=== PATIENT | male | born 1960 | race Caucasian/White ===

== ENCOUNTER 2020-04-21 08:46 | Emergency (ER) | payer OTHER, SELFPAY ==
[2020-04-21 09:08] VITALS: BP 150/82; PULSE 88; RESP 16; TEMP 36.8; O2SAT 98; BMI 30.4
--- NOTE | 2020-04-21 09:20 | ECG_ITS ---
Test Reason : BLURRY VISION Blood Pressure : / mmHG Vent. Rate : 071 BPM Atrial Rate : 071 BPM P-R Int : 154 ms QRS Dur : 084 ms QT Int : 378 ms P-R-T Axes : 049 069 013 degrees QTc Int : 410 ms Normal sinus rhythm Normal ECG When compared with ECG of 16-JUN-2018 07:07, No significant change was found Referred By: Francisco Bernal Electronically Signed By:Quirino Abbott
--- NOTE | 2020-04-21 09:20 | CT_ITS ---
EXAMINATION: CT HEAD WITHOUT CONTRAST CLINICAL INFORMATION: Bilateral visual change, rule out stroke/bleed. COMPARISON: None TECHNIQUE: Contiguous axial imaging was performed from the skull base to vertex without intravenous administration of contrast. Coronal and sagittal reformatted images were obtained. This CT examination was performed using dose optimization techniques as appropriate, variously including the following: *Automated exposure control *Adjustment of mA and/or kV according to patient size (this includes techniques or standardized protocols for targeted exams where dose is matched to indication/reason for exam; i.e. extremities or head) *Use of iterative reconstruction technique DLP: 792 mGy-cm FINDINGS: There is no evidence of acute intracranial hemorrhage or territorial infarction. No abnormal mass effect or midline shift is seen. Hudson to white matter differentiation is well preserved. No extra-axial fluid collections are identified. The ventricles are normal in size. There is no abnormal attenuation within the brain parenchyma. The osseous structures and soft tissues are normal. The mastoid air cells are incompletely visualized. There is opacification of several inferior right mastoid air cells. The left mastoid air cells are clear. Moderate opacification is seen in the right sphenoid sinus. There is opacification of several left ethmoid air cells. CT/CT head/brain wo con IMPRESSION: 1. No acute intracranial pathology. 2. Inflammatory changes in the right sphenoid and left ethmoid paranasal sinuses as well as the inferior right mastoid air cells.
[2020-04-21 09:52] LABS: MANUAL DIFF FLAG NO
--- NOTE | 2020-04-21 10:00 | ED_ITS ---
HPI - Eye Problem General Chief complaint: Eye Problems Stated complaint: eye problems Time Seen by Provider: 04/21/20 08:51 Source: patient Mode of arrival: ambulatory History of Present Illness HPI Narrative: 60-year-old male who presents the emergency department for evaluation of visual changes. The patient states that he was in his usual state of health until 3:00 a.m. when he was watching TV and noted that he had difficulty focusing on the television. He states that he had blurring of his peripheral vision on both eyes. He states he closed 1 eye he still would have blurring of the peripheral vision on the open eye. He also described with an ?wiggling ? lines in his peripheral vision. He did not notice any flashing lights, he states that he had no difficulty with the central vision, he denied tunnel vision. He states that the symptoms lasted for approximately 15 minutes. He continued to watch television and his symptoms recurred again at around 5:00 a.m. the symptoms came on suddenly and were isolated to his peripheral vision similar to the 1st episode. He denied headache, nausea, vomiting, weakness, chest pain, shortness of breath, diaphoresis, neck pain or jaw pain. He states that he currently has a very mild headache. He states that he rarely gets headaches and has no history of migraine headaches. He denies being under any increased stress than usual. He states that he urinates frequency but has not noticed increased thirst. He denies numbness or weakness. At the time of presentation in the emergency department, he states that his symptoms are completely resolved and his vision is back to normal and he has a very mild diffuse headache. Related Data Allergies Allergy/AdvReac Type Severity Reaction Status Date / Time Penicillins [PENICILLINS] Allergy Unknown UNKNOWN Verified 04/21/20 09:07 Review of Systems Review of Systems: Yes all other systems are reviewed and are negative Constitutional: Constitutional: Reports as per HPI Eyes: Eyes: Reports as per HPI ENT: Reports as per HPI Cardiovascular: Cardiovascular: Reports as per HPI Respiratory: Respiratory: Reports as per HPI Gastrointestinal: Gastrointestinal: Reports as per HPI Genitourinary: Genitourinary: Reports as per HPI Musculoskeletal: Musculoskeletal: Reports as per HPI Integumentary/Breasts: Skin/Breast: Reports as per HPI Neurologic: Reports as per HPI and Reports Abnormal speech present Psychiatric: Psychiatric: Reports as per HPI Allergic/Immunologic: Allergic/Immunologic: Reports as per HPI [facility] Past Medical History Attestation statement: The following information was validated with the patient. [facility] Narrative: Borderline hypertension, not on any medications, prostate biopsy in the past-benign, he denies tobacco use, he drinks 3 times a week, 2-3 beverages, denies drug use. Medical History High cholesterol Social History Social History Smoking Status: Light tobacco smoker Use of substances other than those prescribed or required for medical reasons: No Advance Directives: No Advance Directives Information Provided: No Physical Exam Vital Signs: Vital Signs: Last Vital Signs Temp 98.3 F 04/21/20 09:08 Pulse 69 04/21/20 10:10 Resp 16 04/21/20 10:10 BP 148/77 H 04/21/20 10:10 Pulse Ox 97 04/21/20 10:10 Body Mass Index 30.4 Const: General: cooperative and healthy appearing Nutritional Appearance: average body habitus Orientation/consciousness: oriented to person and oriented to place Limitations: no limitations HENMT: Head: Yes normal to inspection, Yes normocephalic, Yes atraumatic and No Temporal artery tenderness present Ears: external ears normal General nose exam: Normal external nose present Face and sinus: Yes normal facial exam Mouth: Normal oral and palatal mucosa present Throat: Yes posterior oropharynx normal Eyes: General: appearance normal, both eyes and all related structures Alignment and Position: alignment normal Periorbital: periorbital findings normal Eyelids: Yes eyelids normal Conjunctivae: conjunctivae normal Sclerae: sclerae normal Pupils: Equal, round and reactive pupils present Direct Ophthalmoscopy: normal light reflex Neck: Neck: Yes normal visual inspection and Yes supple Thyroid: Thyroid normal Chest: Chest palpation & inspection: normal inspection of the chest and normal palpation of entire chest wall Resp: Effort & Inspection: normal respiratory effort and able to speak in complete sentences Auscultation: clear to auscultation bilaterally, no crackles, no rales and no rhonchi Cardio: Rate: regular rate Rhythm: regular rhythm Heart sounds: S1 normal heart sound present, S2 normal heart sound present and no murmurs GI: Inspection: Yes normal to inspection Palpation (GI): Soft to palpation, nontender and no guarding Auscultation: normal bowel sounds : General: Yes no CVA tenderness Back/Spine/Pelvis: Back: no CVA tenderness Cervical Spine: normal cervical lordosis Thoracic/Lumbar Spine: thoracic and lumbar spine normal to inspection Skin: General skin exam: no rashes or lesions noted Lesions: no lesions Rashes: no rashes Trauma: no lacerations or abrasions Neuro: General: oriented to person and oriented to place Cranial nerves: Yes CN's II-XII intact bilaterally and Yes Equal, round and reactive pupils present Cognition (Neuro): normal cognition Speech: Abnormal speech present Motor exam (neuro): 5/5 motor strength present throughout Extrem: Right upper extremity: normal to inspection and full ROM Psych: Appearance: grossly normal and well kempt Mental Status: mental status grossly normal Speech and movement: Normal speech and movement present Affect: normal affect Attitude: cooperative Thought process: Normal thought process present Thought content: Normal thought content present Insight: Good insight present (Psych) Judgement: Good judgement present (Psych) NIH Stroke Scale Internal: Initial- Upon Arrival Level of Consciousness: Alert Level of Consciousness Questions: Answers both questions correctly Level of Consciousness Commands: Performs both tasks correctly Best Gaze: Normal Visual: No visual loss Facial Palsy: Normal Motor Arm (Right): No drift Motor Arm (Left): No drift Motor Leg (Right): No drift Motor Leg (Left): No drift Limb Ataxia: Absent Sensory: Normal Best Language: No aphasia Dysarthia: Normal Extinction and Inattention: No abnormality Score: 0 Course Course Course Narrative: 60-year-old male who presents to the emergency department for evaluation of 2 episodes of visual change which he described as bilateral changes in his peripheral vision with moving lines in his peripheral vision which lasted approximately 15-20 minutes for both episodes and had completely resolved by the time he was evaluated in the emergency department. Patient's physical examination was normal. The patient does not have a history of frequent headaches or migraine headaches but I suspect that he may be having an ocular migraine. The patient was ordered to get a headache workup to include sedimentation rate, CBC, BMP, LFTs, EKG and CT brain without contrast. He is currently asymptomatic therefore no treatment was given. 1049: Patient's laboratory evaluation was unremarkable. The patient's sedimentation rate was normal. The CT scan of the patient's brain without contrast revealed no acute finding to explain his symptoms, he does have some inflammation of the sinuses and I did discuss this with him. My impression is that patient's symptoms are most consistent with an ocular migraine. I discussed this with the patient. He was advised to take Excedrin migraine 1 pill with Benadryl 50 mg every 6 hours as needed for headache/visual changes. I told him if he develops any new symptoms or if he develops any symptoms that are concerning to him he should return to the emergency department for re- evaluation. He should follow up with his doctor in 2 days for re-evaluation as well. MDM - Eye Problem Medical Records Attestation: I reviewed the patient's medical records. Lab Data Attestation: I reviewed the patient's lab results. Result diagrams: 04/21/20 09:45 04/21/20 09:45 Labs: Lab Results 04/21/20 04/21/20 04/21/20 Range/Units 09:45 09:45 09:45 WBC 4.7 L (4.8-10.8) X10*3/uL RBC 5.41 (4.60-5.80) X10*6/uL Hgb 16.0 (14.0-18.0) g/dl Hct 47.8 (42-52) % MCV 88.4 (80-98) fL MCH 29.6 (27.0-33.0) pg MCHC 33.5 (31.0-36.0) g/dl RDW 12.6 (11.0-16.0) % Plt Count 246 (160-400) X10*3/uL MPV 8.4 L (9.4-12.4) fL Immature Gran % (Auto) 0.4 (0.0-0.4) % Neut % (Auto) 63.0 (45-73) % Lymph % (Auto) 25.0 (20-40) % Archuleta % (Auto) 8.7 (2-11) % Eos % (Auto) 2.5 (0-4) % Baso % (Auto) 0.4 (0-2) % Lymph # (Auto) 1.2 (1.2-4.9) X10*3/uL Archuleta # (Auto) 0.4 (0.1-1.2) X10*3/uL Eos # (Auto) 0.1 (0.0-0.4) X10*3/uL Baso # (Auto) 0.0 (0.0-0.2) X10*3/uL Abs Immat Gran (auto) 0.02 (0.00-0.03) X10*3/uL Absolute Neuts (auto) 3.0 (2.0-8.3) X10*3/uL Absolute Nucleated RBC 0.000 (0.0-0.012) X10*3/uL Nucleated RBC % (auto) 0.0 (0.0-0.2) /100WBC ESR 2 (0-15) MM/HR Sodium 140 (135-145) mmol/L Potassium 4.8 (3.3-5.1) mmol/l Chloride 101 (96-108) mmol/L Carbon Dioxide 32 H (22-29) mmol/L Anion Gap 12 (12-20) BUN 18 H (9-16) mg/dL Creatinine 1.05 (0.5-1.4) mg/dL Estim Creat Clear Calc 83.8 Estimated GFR > 60 Random Glucose 113 (60-115) mg/dL Calcium 9.3 (8.4-10.2) mg/dL Total Bilirubin 0.5 (0.0-1.0) mg/dL Direct Bilirubin 0.2 (0.0-0.5) mg/dL AST 25 (5-37) U/L ALT 32 (0-40) U/L Alkaline Phosphatase 91 (39-117) U/L Total Protein 7.2 (6.5-8.0) g/dL Albumin 4.6 (3.5-5.0) g/dL ECG Data Attestation: I personally reviewed and interpreted this ECG as follows: ECG interpretation date: 04/21/20 ECG interpretation time: 09:59 Prior ECG tracings: not available for review Interpretation: Normal sinus rhythm with a rate of 71, normal intervals, inverted T-wave in lead 3, small Q-wave in lead 3, no ST segment elevation and no ST segment depression, no old EKG for comparison Discharge Plan Discharge Clinical Impression: Ocular migraine, Change in vision Patient Disposition: Home, Self-Care Instructions: Ocular Migraine (ED) Additional Instructions: Your blood work was normal. The CT scan of your brain without IV contrast revealed no evidence of stroke, bleeding or large tumors in your brain. You did have some mild inflammation of your sinuses, but this is not the cause of your symptoms and does not need treatment at this time. If your symptoms recur, take Excedrin migraine 1 pill and Benadryl 25 mg, 2 pills every 6 hours as needed for symptoms. After you take these medications, lie down for 1 hour in a dark quiet room and your symptoms should resolve. If you develop any new symptoms that are concerning to you or if your symptoms get worse then you should return to the emergency department for evaluation. Follow-up with your doctor in 2 days for re-evaluation.
[2020-04-21 10:03] LABS: Basophils Percent Auto 0.4 % (0-2); Eosinophils Absolute Auto 0.1 X10*3/uL (0.0-0.4); Eosinophils Percent Auto 2.5 % (0-4); Hematocrit 47.8 % (42-52); Imm Gran Abs Auto 0.02 X10*3/uL (0.00-0.03); Imm Gran Pct Auto 0.4 % (0.0-0.4); Lymphocytes Absolute Auto 1.2 X10*3/uL (1.2-4.9); Mean Corpuscular HGB Conc 33.5 g/dl (31.0-36.0); Mean Corpuscular Hemoglobin 29.6 pg (27.0-33.0); Mean Corpuscular Volume 88.4 fL (80-98); Mean Platelet Volume 8.4 fL (9.4-12.4); Monocytes Absolute Auto 0.4 X10*3/uL (0.1-1.2); Monocytes Percent Auto 8.7 % (2-11); Platelet Count 246 X10*3/uL (160-400); Red Blood Count 5.41 X10*6/uL (4.60-5.80); Red Cell Distribution Width 12.6 % (11.0-16.0); White Blood Count 4.7 X10*3/uL (4.8-10.8)
[2020-04-21 10:10] VITALS: BP 148/77; PULSE 69; RESP 16; O2SAT 97
[2020-04-21 10:16] LABS: Alanine Aminotransferase 32 U/L (0-40); Albumin Level 4.6 g/dL (3.5-5.0); Alkaline Phosphatase 91 U/L (39-117); Anion Gap 12 (12-20); Aspartate Amino Transferase 25 U/L (5-37); Bilirubin Direct 0.2 mg/dL (0.0-0.5); Bilirubin Total 0.5 mg/dL (0.0-1.0); Blood Urea Nitrogen 18 mg/dL (9-16); Calcium 9.3 mg/dL (8.4-10.2); Carbon Dioxide 32 mmol/L (22-29); Chloride 101 mmol/L (96-108); Creatinine Clr Calc Pharmacy 83.8; Estimated Glomerular Filt Rate > 60; Glucose Random 113 mg/dL (60-115); Potassium 4.8 mmol/l (3.3-5.1); Sodium 140 mmol/L (135-145); Total Protein 7.2 g/dL (6.5-8.0)
[2020-04-21 10:55] LABS: Erythrocyte Sedimentation Rate 2 MM/HR (0-15)
== END 2020-04-21 11:01 | disposition home or self-care (01) ==
PROVIDERS: Emergency Provider Emergency Medicine Emergency Medical Services; PCP Internal Medicine
DX: G43.009 Migraine without aura, not intractable, without status migrainosus (principal); H53.8 Other visual disturbances; R29.700 NIHSS score 0; F17.200 Nicotine dependence, unspecified, uncomplicated; Z71.6 Tobacco abuse counseling
CPT/HCPCS: 36415; 70450; 80048; 80076; 85025; 85652; 93005; 99284

== ENCOUNTER 2022-08-30 05:57 | Emergency (ER) | payer BC, SELFPAY ==
--- NOTE | ~2022-08-30 | XR_ITS ---
EXAMINATION: XR LUMBOSACRAL SPINE CLINICAL INFORMATION: Low back pain COMPARISON: None available. TECHNIQUE: Three views of the lumbosacral spine. FINDINGS: Degenerative changes. Some loss of disc height at multiple levels with minimal spurring in the endplates. Scoliosis convex right apex at L3. No listhesis or compression injury is seen. Likely degeneration in the posterior elements in the lower lumbar region. XR/XR lumbar spine 2-3V IMPRESSION: Mild degenerative changes and mild scoliosis. No acute finding.
[2022-08-30 06:23] VITALS: BP 157/98; PULSE 102; RESP 18; TEMP 36.3; O2SAT 97; BMI 30.4
--- NOTE | 2022-08-30 07:24 | ED.BACK ---
HPI - Back Pain/Injury General Chief Complaint: Back Pain/Injury Stated Complaint: back pain radiates to legs, hard to walk Time Seen by Provider: 08/30/22 07:24 Source: patient Mode of arrival: ambulatory Limitations: no limitations History of Present Illness HPI Narrative: 62 yo male with history of HLD presents to the ER for evaluation of left sided LBP for the last 2 weeks along with new onset of radiation of the pain and tingling sensation in the left leg for the last 2 days. He cannot recall what he did to throw out my back but it has been 2 weeks that he has had pain in the left lower back. 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 He does not do heavy lifting. He states he went to Urgent Care last Saturday and was prescribed muscle relaxers and anti-inflammatories without any improvement. Two days ago he started to have pain and tingling in the left leg, radiating down to the front of the left calf. It is worse with walking. He states he has some numbness as well. No symptoms in his right leg or left upper extremity. No urinary or bowel issues. MD elicited complaint: back pain Pertinent past history: prior back pain Onset (ago): week(s) (2) Timing: progressively worsening Severity: severe Similar Symptoms Previously: Yes Quality: sharp and tingling Location: left lower back Radiation: left leg below the knee Exacerbating factors: walking Relieving factors: supine Context: unknown Associated symptoms: difficulty walking and parasthesias Treatments prior to arrival: acetaminophen Work related injury: No Related Data Previous Rx's Medication Instructions Recorded lidocaine 5 % topical patch 1 patch topical DAILY #15 ea 08/30/22 oxycodone 5 mg tablet 5 mg PO Q6H PRN severe pain (scale 08/30/22 score 7-10) #8 tabs prednisone 50 mg tablet 50 mg PO DAILY #5 tabs 08/30/22 Allergies Allergy/AdvReac Type Severity Reaction Status Date / Time Penicillins [PENICILLINS] Allergy Unknown UNKNOWN Verified 04/21/20 09:07 Review of Systems Review of Systems: Yes all other systems are reviewed and are negative PMFSH Past Medical History Medical History High cholesterol Social History Social History Advance Directives: No Advance Directives Information Provided: No Physical Exam Vital Signs: Vital Signs: Last Vital Signs Temp 98.3 F 08/30/22 07:27 Pulse 82 08/30/22 07:27 Resp 18 08/30/22 07:27 BP 151/85 H 08/30/22 07:27 Pulse Ox 96 08/30/22 07:27 O2 Del Method Room Air 08/30/22 07:27 BMI result Body Mass Index 30.4 Appearance: Alert. Oriented X3. No acute distress. Head: normocephalic, atraumatic. Eyes: Pupils equal, round and reactive to light. ENT: Pharynx normal. No tonsillar swelling or exudate. Neck: Normal inspection. Neck supple. CVS: Normal heart rate and rhythm. Pulses normal. Respiratory: No respiratory distress. Breath sounds normal. Abdomen: Soft and nontender. +BS x4 Skin: Skin warm and dry. Normal skin color. Normal skin turgor. No rashes. Back: normal inspection, mild soft tissue tenderness of the left low lumbar area. normal flexion of the spine. some mild midline tenderness of the lumbar spine. Extremities: No lower extremity edema. No joint swelling. Neuro/psych: Oriented X 3. No motor deficit. +sensory deficit of left anterior rice. CN II-XII intact. Normal speech and cognition. Medications Administered Discontinued Medications Generic Name Dose Route Start Last Admin Trade Name Freq PRN Reason Stop Dose Admin Ketorolac Tromethamine 30 mg 08/30/22 07:40 08/30/22 07:57 Ketorolac Tromethamine 30 Mg/Ml Vial IM 08/30/22 07:41 30 mg ONCE ONE Administration Prednisone 50 mg 08/30/22 07:40 08/30/22 07:57 Prednisone 10 Mg Tablet PO 08/30/22 07:41 50 mg ONCE ONE Administration Medical Decision Making Medical Decision Making MDM Narrative: 62 yo male presenting with LBP x2 weeks and new pain and tingling running down the left anterior calf x days. No trauma. No red flag symptoms of LBP. He has normal DTRs and strength. Steady gait. XR today showing some degenerative changes and loss of disc height, scoliosis. His symptoms are c/w L5 lumbar radiculopathy. He has seen his PCP for back pain and in the past and had success with PT. Encouraged to f/u with them. Will start short course of steroids for inflammation and short course of PRN oxycodone for severe pain only. stable for d/c home with outpatient follow up. Differential Diagnosis Differential Diagnoses: The differential diagnosis associated with the presentation includes Inflammatory disorders, malignancy, trauma, osteoporosis, nerve root compression, radiculopathy, plexopathy, degenerative disc disease, disc herniation, spinal stenosis, sacroiliac joint dysfunction, facet joint injury, and less likely infection?like abscess or diskitis Independent Interpretation I performed an independent interpretation of an: Plain X-Ray Interpretation: no compression fractures appreciated, agree w/ radiology read Radiology Impression Discussion of test interpretation with radiology: I have reviewed the radiologist's reading. Radiologist Impression: XR/XR lumbar spine 2-3V IMPRESSION: Mild degenerative changes and mild scoliosis. No acute finding. External Record Review External record reviewed: Prior outpatient labs and Prior outpatient radiology Prescription Management I considered prescription management with: Pain Medication Critical Care Time Critical Care Time Critical Care Time: No Discharge Plan Discharge Clinical Impression: Lumbar radiculopathy Patient Disposition: Home, Self-Care Instructions: Lumbar Radiculopathy (ED), Lower Back Exercises (ED) Additional Instructions: Your x-ray today showed some degenerative changes, loss of disc willem at multiple levels in your spine and some scoliosis. Your symptoms are consistent with nerve compression. No bending, lifting or twisting. Rest. Try to stay off your feet as much as you can for the next few days Use ice several times per day for 20 minutes at a time Take medications as prescribed to help with pain and discomfort. Continue Tylenol 1000 mg every 6 hours for pain. Follow up with your Primary Care Doctor this week. If your pain worsens, if you develop new numbness, tingling, weakness, loss of function or incontinence call 911 or come back to the ER right away for evaluation. Prescriptions: New prednisone 50 mg tablet 50 mg PO DAILY Qty: 5 0RF lidocaine 5 % adhesive patch,medicated 1 patch topical DAILY Qty: 15 0RF Rx Instructions: leave on most painful area for up to 12 hrs oxycodone 5 mg tablet 5 mg PO Q6H PRN (Reason: severe pain (scale score 7-10)) Qty: 8 0RF Rx Instructions: Partial Fill upon patient request. Stand Alone Forms: Work/School Release
[2022-08-30 07:27] VITALS: BP 151/85; PULSE 82; RESP 18; TEMP 36.8; O2SAT 96
[2022-08-30] MEDS: Ketorolac Tromethamine 30 MG/ML VIAL IM (07:57)
[2022-08-30] MEDS: predniSONE 10 MG TABLET 50 MG PO (07:57)
== END 2022-08-30 09:38 | disposition home or self-care (01) ==
PROVIDERS: Emergency Provider Emergency Medicine; PCP Internal Medicine
DX: M54.16 Radiculopathy, lumbar region (principal)
CPT/HCPCS: 72100; 96372; 99283; 99284; J1885

== ENCOUNTER 2022-09-03 04:47 | Emergency (ER) | payer BC, SELFPAY ==
[2022-09-03 05:08] VITALS: BP 154/99; PULSE 88; RESP 16; TEMP 36.2; O2SAT 98; BMI 28.7
--- NOTE | 2022-09-03 05:08 | ED.EXTPRO ---
HPI - Extremity Problem General Chief complaint: Extremity Injury, Lower Stated complaint: Left leg pain Time Seen by Provider: 09/03/22 05:08 Source: patient Mode of arrival: ambulatory Limitations: no limitations History of Present Illness HPI Narrative: Patient with no significant injury to the back noticed dull pain for last few months the left lower back got worse in last 4 days was seen here x-ray was done which was negative now feel pain in lower leg especially on ambulation no swelling of the leg no fever or chills Related Data Previous Rx's Medication Instructions Recorded lidocaine 5 % topical patch 1 patch topical DAILY #15 ea 08/30/22 oxycodone 5 mg tablet 5 mg PO Q6H PRN severe pain (scale 08/30/22 score 7-10) #8 tabs prednisone 50 mg tablet 50 mg PO DAILY #5 tabs 08/30/22 Allergies Allergy/AdvReac Type Severity Reaction Status Date / Time Penicillins [PENICILLINS] Allergy Unknown UNKNOWN Verified 04/21/20 09:07 Review of Systems Review of Systems: Yes all other systems are reviewed and are negative [facility] Past Medical History Medical History High cholesterol Social History Social History Smoked in Last 30 Days: No Use of substances other than those prescribed or required for medical reasons: No Advance Directives: No Advance Directives Information Provided: Yes Physical Exam Vital Signs: Vital Signs: Last Vital Signs Temp 97.1 F 09/03/22 05:08 Pulse 88 09/03/22 05:08 Resp 16 09/03/22 05:08 BP 154/99 H 09/03/22 05:08 Pulse Ox 98 09/03/22 05:08 O2 Del Method Room Air 09/03/22 05:08 BMI result Body Mass Index 28.7 Appearance: Alert. Oriented X3. No acute distress. ENT: Pharynx normal. Oral Mucosa moist Neck: Normal inspection. Neck supple. CVS: Normal heart rate and rhythm. Pulses normal. Respiratory: No respiratory distress. Equal air entry bilateral, no wheezing/rales/rhonchi Abdomen: Soft and nontender. Bowel sounds are present, no mass palpable, no CVA tenderness Skin: Skin warm and dry. Normal skin color. Normal skin turgor. Extremities: No lower extremity edema. No calf tenderness tenderness in sciatic notch area on the left side, [place] test is positive suggestive of piriform syndrome Neuro: Oriented X 3. No motor deficit. No sensory deficit.No cerebellar signs , cranial nerves II-XII intact Medications Administered Discontinued Medications Generic Name Dose Route Start Last Admin Trade Name Yayoq PRN Reason Stop Dose Admin Cyclobenzaprine HCl 10 mg 09/03/22 05:39 09/03/22 05:53 Cyclobenzaprine Hcl 10 Mg Tablet PO 09/03/22 05:40 10 mg ONCE ONE Administration Oxycodone HCl 10 mg 09/03/22 05:39 09/03/22 05:54 Oxycodone Hcl Immed Release 5 Mg Tablet PO 09/03/22 05:40 10 mg ONCE ONE Administration Medical Decision Making Medical Decision Making [facility] Narrative: Patient clinically with piriformis syndrome with [place] test is positive. Will give patient was relaxants and pain medication advised to do physical therapy Lab Data 09/03/22 05:12 09/03/22 05:12 Labs: Lab Results 09/03/22 09/03/22 Range/Units 05:12 05:12 WBC 9.6 (4.8-10.8) X10*3/uL RBC 5.65 (4.60-5.80) X10*6/uL Hgb 16.7 (14.0-18.0) g/dl Hct 48.1 (42.0-52.0) % MCV 85.1 (80.0-98.0) fL MCH 29.6 (27.0-33.0) pg MCHC 34.7 (31.0-36.0) g/dl RDW 12.4 (11.0-16.0) % Plt Count 285 (160-400) X10*3/uL MPV 8.3 L (9.4-12.4) fL Absolute Nucleated RBC 0.000 (0.0-0.012) X10*3/uL Nucleated RBC % (auto) 0.0 (0.0-0.2) /100WBC Sodium 144 (135-145) mmol/L Potassium 4.8 (3.3-5.1) mmol/L Chloride 105 (96-108) mmol/L Carbon Dioxide 29 (22-29) mmol/L Anion Gap 15 (12-20) BUN 22 H (9-16) mg/dL Creatinine 1.07 (0.5-1.4) mg/dL Estim Creat Clear Calc 83.1 Estimated GFR > 60 Random Glucose 95 (60-115) mg/dL Calcium 10.3 H D (8.4-10.2) mg/dL Total Bilirubin 0.8 (0.0-1.0) mg/dL AST 14 (5-37) U/L ALT 19 (0-40) U/L Alkaline Phosphatase 83 (39-117) U/L Total Protein 7.1 (6.5-8.0) g/dL Albumin 4.5 (3.5-5.0) g/dL Discharge Plan Discharge Clinical Impression: Piriformis syndrome of left side Patient Disposition: Home, Self-Care Instructions: Piriformis Syndrome (ED) Additional Instructions: Continue taking your pain medication Preformis muscle exercises as advised follow with PCP if not better Prescriptions: No Action prednisone 50 mg tablet 50 mg PO DAILY Qty: 5 0RF lidocaine 5 % adhesive patch,medicated 1 patch topical DAILY Qty: 15 0RF Rx Instructions: leave on most painful area for up to 12 hrs oxycodone 5 mg tablet 5 mg PO Q6H PRN (Reason: severe pain (scale score 7-10)) Qty: 8 0RF Rx Instructions: Partial Fill upon patient request.
[2022-09-03 05:19] LABS: Hematocrit 48.1 % (42.0-52.0); Hemoglobin 16.7 g/dl (14.0-18.0); Mean Corpuscular HGB Conc 34.7 g/dl (31.0-36.0); Mean Corpuscular Hemoglobin 29.6 pg (27.0-33.0); Mean Corpuscular Volume 85.1 fL (80.0-98.0); Mean Platelet Volume 8.3 fL (9.4-12.4); Platelet Count 285 X10*3/uL (160-400); Red Blood Count 5.65 X10*6/uL (4.60-5.80); Red Cell Distribution Width 12.4 % (11.0-16.0); White Blood Count 9.6 X10*3/uL (4.8-10.8)
--- NOTE | 2022-09-03 05:45 | PC.NURSE ---
pt medicated according to mar. pt at bedside. pt calm and cooperative. pt tolerated po meds
[2022-09-03 05:46] LABS: Alanine Aminotransferase 19 U/L (0-40); Albumin Level 4.5 g/dL (3.5-5.0); Alkaline Phosphatase 83 U/L (39-117); Anion Gap 15 (12-20); Aspartate Amino Transferase 14 U/L (5-37); Bilirubin Total 0.8 mg/dL (0.0-1.0); Blood Urea Nitrogen 22 mg/dL (9-16); Calcium 10.3 mg/dL (8.4-10.2); Carbon Dioxide 29 mmol/L (22-29); Chloride 105 mmol/L (96-108); Creatinine Clr Calc Pharmacy 83.1; Estimated Glomerular Filt Rate > 60; Glucose Random 95 mg/dL (60-115); Potassium 4.8 mmol/L (3.3-5.1); Sodium 144 mmol/L (135-145); Total Protein 7.1 g/dL (6.5-8.0)
[2022-09-03] MEDS: Cyclobenzaprine HCl 10 MG TABLET PO (05:53)
[2022-09-03] MEDS: oxyCODONE HCl Immed Release 5 MG TABLET 10 MG PO (05:54)
[2022-09-03 06:45] VITALS: BP 127/89; PULSE 73; RESP 16; TEMP 36.8; O2SAT 95
--- NOTE | 2022-09-03 06:50 | PC.NURSE ---
vss. pt at bedside at time of discharge. pt provided with discharge plan. cms intact. pt verbalized understanding of discharge plan. pt utilized understanding of discharge plan
== END 2022-09-03 06:55 | disposition home or self-care (01) ==
PROVIDERS: Emergency Provider Internal Medicine; PCP Internal Medicine
DX: G57.02 Lesion of sciatic nerve, left lower limb (principal); Z79.899 Other long term (current) drug therapy
CPT/HCPCS: 36415; 80053; 85027; 99283; 99284

== ENCOUNTER 2022-09-09 04:13 | Emergency (ER) | payer BC, SELFPAY ==
[2022-09-09 04:16] VITALS: BP 173/100; PULSE 93; RESP 20; TEMP 35.9; O2SAT 98; BMI 31.8
--- NOTE | 2022-09-09 05:15 | ED_ITS ---
HPI - Male Genitourinary General Chief complaint: Urogenital-Male Stated complaint: unable to urinate Time Seen by Provider: 09/09/22 04:59 Source: patient Mode of arrival: ambulatory Limitations: no limitations History of Present Illness HPI Narrative: 8-year-old male who presents emergency department for evaluation of difficulty urinating. He states that he has not been able urinate since yesterday afternoon. This morning his bladder felt very full but he was only able to urinate small amounts. He states that he did start gabapentin on 09/04/2022 for a pinched nerve. He states he does have an enlarged prostate. He also has 1 kidney. He denied fever, chills, chest pain, shortness of breath, na usea, vomiting, diarrhea. Related Data Previous Rx's Medication Instructions Recorded lidocaine 5 % topical patch 1 patch topical DAILY #15 ea 08/30/22 oxycodone 5 mg tablet 5 mg PO Q6H PRN severe pain (scale 08/30/22 score 7-10) #8 tabs prednisone 50 mg tablet 50 mg PO DAILY #5 tabs 08/30/22 tamsulosin 0.4 mg capsule (Flomax) 0.4 mg PO DAILY #30 caps 09/09/22 Allergies Allergy/AdvReac Type Severity Reaction Status Date / Time Penicillins [PENICILLINS] Allergy Unknown UNKNOWN Verified 04/21/20 09:07 Review of Systems Review of Systems: Yes all other systems are reviewed and are negative [facility] Past Medical History [facility] Narrative: Past medical history: High cholesterol, enlarged prostate, lumbar radiculopathy Medical History High cholesterol Social History Social History Advance Directives: No Advance Directives Information Provided: Yes Physical Exam Vital Signs: Vital Signs: Last Vital Signs Temp 98.4 F 09/09/22 07:28 Pulse 77 09/09/22 07:28 Resp 18 09/09/22 07:28 BP 130/80 09/09/22 07:28 Pulse Ox 96 09/09/22 07:28 O2 Del Method Room Air 09/09/22 07:28 BMI result Body Mass Index 31.8 Vital signs revealed an elevated blood pressure of 173/100 General: Awake, alert male patient, appears to be in distress secondary to unable to urinate. Abdomen: Patient's bladder is distended, has tenderness palpation over the suprapubic area Medications Administered Discontinued Medications Generic Name Dose Route Start Last Admin Trade Name Navid PRN Reason Stop Dose Admin Tamsulosin HCl 0.4 mg 09/09/22 05:15 09/09/22 06:15 Tamsulosin Hcl 0.4 Mg Capsule PO 09/09/22 05:16 0.4 mg ONCE ONE Administration Medical Decision Making Medical Decision Making [facility] Narrative: 62-year-old male who presents emergency department for evaluation of urinary retention. Patient does have an enlarged prostate and 1 kidney. Patient was recently started on gabapentin for lumbar radiculopathy. Examination was consistent with urinary retention and distended bladder. I was able to easily insert a 16 [place] Bhatia catheter. Patient was given Flomax 0.4 mg orally. I did order CBC, CMP and urinalysis. 0742: My interpretation patient's laboratory evaluation as follows: Elevated WBC 58552. Elevated BUN of 19 with a normal creatinine at 0.88. Elevated glucose 123. Elevated AST and ALT of 4342. Urinalysis trace positive for blood. Microscopic revealed 6-10 RBCs, 0-5 WBCs, no bacteria. Patient will be discharged home with a leg bag instructions on and Bhatia catheter. He will be prescribed Flomax 0.4 mg daily. He was advised to follow- up with his urologist for re-evaluation in 3-4 days to see if the Bhatia catheter can be removed. Differential Diagnosis Differential diagnosis includes was not limited to urinary retention, prostatitis, urinary tract infection, adverse reaction to medication (gabapentin), urethral stricture Lab Data [facility] Lab Attestation statement: I reviewed the patient's lab results. See [facility] 09/09/22 05:37 09/09/22 05:21 Labs: Lab Results 09/09/22 09/09/22 09/09/22 Range/Units 05:21 05:37 05:37 WBC 5.1 (4.8-10.8) X10*3/uL RBC 5.33 (4.60-5.80) X10*6/uL Hgb 15.7 (14.0-18.0) g/dl Hct 45.2 (42.0-52.0) % MCV 84.8 (80.0-98.0) fL MCH 29.5 (27.0-33.0) pg MCHC 34.7 (31.0-36.0) g/dl RDW 12.4 (11.0-16.0) % Plt Count 243 (160-400) X10*3/uL MPV 8.4 L (9.4-12.4) fL Immature Gran % (Auto) 0.4 (0.0-0.4) % Neut % (Auto) 67.3 (45-73) % Lymph % (Auto) 19.3 L (20-40) % [place] % (Auto) 10.2 (2-11) % Eos % (Auto) 2.0 (0-4) % Baso % (Auto) 0.8 (0-2) % Lymph # (Auto) 1.0 L (1.2-4.9) X10*3/uL [place] # (Auto) 0.5 (0.1-1.2) X10*3/uL Eos # (Auto) 0.1 (0.0-0.4) X10*3/uL Baso # (Auto) 0.0 (0.0-0.2) X10*3/uL Abs Immat Gran (auto) 0.02 (0.00-0.03) X10*3/uL Absolute Neuts (auto) 3.4 (2.0-8.3) x10*3/uL Absolute Nucleated RBC 0.000 (0.0-0.012) X10*3/uL Nucleated RBC % (auto) 0.0 (0.0-0.2) /100WBC Sodium 138 (135-145) mmol/L Potassium 4.7 (3.3-5.1) mmol/L Chloride 104 (96-108) mmol/L Carbon Dioxide 22 (22-29) mmol/L Anion Gap 17 (12-20) BUN 19 H (9-16) mg/dL Creatinine 0.88 (0.5-1.4) mg/dL Estim Creat Clear Calc 99.6 Estimated GFR > 60 Random Glucose 123 H (60-115) mg/dL Calcium 9.7 (8.4-10.2) mg/dL Total Bilirubin 0.6 (0.0-1.0) mg/dL AST 43 H (5-37) U/L ALT 42 H (0-40) U/L Alkaline Phosphatase 97 (39-117) U/L Total Protein 7.1 (6.5-8.0) g/dL Albumin 4.4 (3.5-5.0) g/dL Urine Color Yellow Urine Appearance Clear Urine pH 7.0 (5.0-9.0) Ur Specific [place] 1.015 (1.005-1.025) Urine Protein Negative (Neg-Trace) mg/dL Urine Glucose (UA) Negative (Negative) mg/dL Urine Ketones Negative (Negative) mg/dL Urine Blood Trace H (Negative) Urine Nitrite Negative (Negative) Ur Leukocyte Esterase Negative (Negative) Urine RBC 6-10 H (0-2) /HPF Urine WBC 0-5 (0-5) /HPF Ur Squamous Epith Cells 0-2 (0-2) /HPF Urine Bacteria None Seen (None Seen) Hyaline Casts 0-2 (0-2) /LPF Procedures Catheter Insertion (Urinary) Date of insertion: 09/09/22 Time of insertion: 05:20 Reason for placing: Yes Reason for placing indwelling catheter: Acute urinary retention Bladder scan/ultrasound used before catheterization: Yes Estimated amount of urine (mLs): 400 Antiseptic solution prep: Povidone-Iodine Topical anesthesia used: Yes (10 mL UroJet) Catheter type/location: Urethral Size ([place]an): 16 Catheter balloon size (mL): 10 Catheter balloon amount: 10 Results: successfully catheterized-immediate flow Procedure performed: without complications Discharge Plan Discharge Clinical Impression: Acute urinary retention Patient Disposition: Home, Self-Care Instructions: Urinary Retention in Men (ED), Bhatia Catheter Placement and Care (ED) Additional Instructions: After we inserted the Bhatia catheter you drain 1000 mL of urine from your bladder. Keep the Bhatia catheter in place, do not pull on it there is a large balloon that is inflated with water holding it in place. Wear the leg bag during the day and the being bag at night Follow-up with your urologist in 3-4 days to see if the catheter can be removed. Take Flomax (tamsulosin) 0.4 mg once a at night. This medication relax is the prostate smooth muscle and may help open up the prostate so that you can urinate again Please return to the emergency department if your symptoms get worse or if you develop any symptoms that are concerning to you. Prescriptions: New tamsulosin [Flomax] 0.4 mg capsule 0.4 mg PO DAILY Qty: 30 0RF No Action prednisone 50 mg tablet 50 mg PO DAILY Qty: 5 0RF lidocaine 5 % adhesive patch,medicated 1 patch topical DAILY Qty: 15 0RF Rx Instructions: leave on most painful area for up to 12 hrs oxycodone 5 mg tablet 5 mg PO Q6H PRN (Reason: severe pain (scale score 7-10)) Qty: 8 0RF Rx Instructions: Partial Fill upon patient request.
[2022-09-09 05:40] LABS: MANUAL DIFF FLAG NO
[2022-09-09 05:42] LABS: Basophils Percent Auto 0.8 % (0-2); Eosinophils Absolute Auto 0.1 X10*3/uL (0.0-0.4); Hematocrit 45.2 % (42.0-52.0); Hemoglobin 15.7 g/dl (14.0-18.0); Imm Gran Abs Auto 0.02 X10*3/uL (0.00-0.03); Imm Gran Pct Auto 0.4 % (0.0-0.4); Lymphocytes Percent Auto 19.3 % (20-40); Mean Corpuscular HGB Conc 34.7 g/dl (31.0-36.0); Mean Corpuscular Hemoglobin 29.5 pg (27.0-33.0); Mean Corpuscular Volume 84.8 fL (80.0-98.0); Mean Platelet Volume 8.4 fL (9.4-12.4); Monocytes Absolute Auto 0.5 X10*3/uL (0.1-1.2); Monocytes Percent Auto 10.2 % (2-11); Neutrophils Absolute Auto 3.4 x10*3/uL (2.0-8.3); Neutrophils Percent Auto 67.3 % (45-73); Platelet Count 243 X10*3/uL (160-400); Red Blood Count 5.33 X10*6/uL (4.60-5.80); Red Cell Distribution Width 12.4 % (11.0-16.0); White Blood Count 5.1 X10*3/uL (4.8-10.8)
[2022-09-09 05:43] LABS: Alanine Aminotransferase 42 U/L (0-40); Albumin Level 4.4 g/dL (3.5-5.0); Alkaline Phosphatase 97 U/L (39-117); Anion Gap 17 (12-20); Aspartate Amino Transferase 43 U/L (5-37); Bilirubin Total 0.6 mg/dL (0.0-1.0); Blood Urea Nitrogen 19 mg/dL (9-16); Calcium 9.7 mg/dL (8.4-10.2); Carbon Dioxide 22 mmol/L (22-29); Chloride 104 mmol/L (96-108); Creatinine Clr Calc Pharmacy 99.6; Estimated Glomerular Filt Rate > 60; Glucose Random 123 mg/dL (60-115); Potassium 4.7 mmol/L (3.3-5.1); Sodium 138 mmol/L (135-145); Total Protein 7.1 g/dL (6.5-8.0)
[2022-09-09 05:44] LABS: Appearance Urine Clear; Color Urine Yellow; Glucose Urine UA Negative (Negative); Leukocyte Esterase Urine Negative (Negative); Nitrite Urine Negative (Negative); Specific Gravity - Urine 1.015 (1.005-1.025); UMIC TRIGGER UACC YES; Urine Blood Trace (Negative); Urine Ketones Negative (Negative); Urine Protein Negative (Neg-Trace)
[2022-09-09 05:46] LABS: Bacteria Urine None Seen (None Seen); Hyaline Casts Urine 0-2 /LPF (0-2); Squamous Epithelial Cell Urine 0-2 /HPF (0-2); WBC Urine 0-5 /HPF (0-5)
[2022-09-09] MEDS: Tamsulosin HCL 0.4 MG CAPSULE PO (06:15)
[2022-09-09 07:28] VITALS: BP 130/80; PULSE 77; RESP 18; TEMP 36.9; O2SAT 96
[2022-09-09 08:12] VITALS: BP 130/78; PULSE 88; RESP 18; O2SAT 95
== END 2022-09-09 08:14 | disposition home or self-care (01) ==
PROVIDERS: Emergency Provider Emergency Medicine Emergency Medical Services
DX: R33.9 Retention of urine, unspecified (principal); Z79.899 Other long term (current) drug therapy
CPT/HCPCS: 36415; 51702; 51798; 80053; 81001; 85025; 99284

== ENCOUNTER 2025-05-03 20:23 | Emergency (ER) | payer BC, SELFPAY ==
--- OUTSIDE RECORDS SUMMARY | 2021-04-26 10:31 | XMS_ITS | Encounter Summary ---
Author Organization [facility] Address [address] [address] Phone Care Team Providers Care Analytics Lead Name Role Phone Shyanne Casas MD Primary Care Provider Encounter Details Date Type Department Care Team (Late st Contact Info) Description 04/26/2021 10:31 AM EST Hospital Encounter [facility] [address] [place] [phone] Sabina Matthews FNP [address] [place] [address] [email or web address] Social History Tobacco Use Types Packs/Day Years Used Date Smoking Tobacco: Light Smoker Cigars Smokeless Tobacco: Never Comments:One cigar per year Alcohol Use Standard Drinks/Week Comments Yes 0 (1 standard drink = 0.6 oz pur e alcohol) Occasional Education Answer Date Recorded Are you interested in more education? Not on ion e 09/01/2022 Are you concerned about learning? Not on file 09/01/2022 No 09/01/2022 No 09/01/2022 Digital Access Answer Date Recorded No 09/30/2022 No 09/30/2022 Reliable internet access at home? Not on file 09/30/2022 Device with a working camera? Not on file Sex and Gender Information Value Date Recorded Sex Assigned at Not on file Legal Sex Male 9:04 AM EST Gender Identity Not on file Sexual Orientation Not on file documented as of this encounter Plan of Treatment Not on file documented as of this encounter Procedures Procedure Name Priority Date/Time Associated Diagnosis Comments XR HAND 3 OR MORE VIEWS (RIGHT) Urgent/patient waiting 04/26/2021 10:37 AM EST Tendonitis of right hand documented in this encounter Results * XR HAND 3 OR MORE VIEWS (RIGHT) (04/26/2021 10:37 AM EST) Anatomical Region Laterality Modality Hand Right Computed Radiogr aphy 04/26/2021 11:0 0 AM EST Impressions 04/26/2021 11:02 AM EST No fracture or dislocation. Narrative 04/26/2021 11:02 AM EST XR HAND 3 OR MORE VIEWS (RIGHT) COMPARISON: None. FINDINGS: Soft tissue swelling over the fifth metacarpal. No acute fracture or dislocation. Cartilage spaces are preserved. No radiopaque foreign body. Procedure Note Angelina Handley MD - 04/26/2021 XR HAND 3 OR MORE VIEWS (RIGHT) COMPARISON: None. FINDINGS: Soft tissue swelling over the fifth metacarpal. No acute fracture ordislocation. Cartilage spaces are preserved. No radiopaque foreign body. IMPRESSION: No fracture or dislocation. Sabina Matthews ASSISTANT SHIFT SUPERVISOR IMG XR UPPER EXTREMITY Mary Carmen l Result documented in this encounter Visit Diagnoses Not on filedocumented in this encounter Additional Health Concerns Infection Onset Date Last Indicated Resolved Time Resp-Risk 05/01/2025 05/01/2025 05/01/2025 10:1 0 AM EST Influenza A 05/01/2025 05/01/2025 documented as of this encounter Care Teams Analytics Lead Relationship Specialty Start Date End Date Shyanne Casas MD [address] [place] [address] [address] [place] [id number] PCP - General Internal Medicine 04/26/21 documented as of this encounter Additional Source Comments The information contained in this document represents components of the legal health record. It is not the complete legal health record.[facility]
--- OUTSIDE RECORDS SUMMARY | 2025-05-01 09:30 | XMS_ITS | Encounter Summary ---
Author Organization [facility] Address [address] [place] [phone] Phone Care Team Providers Care Detective Automobile Section Name Role Phone Shyanne Casas MD Primary Care Provider Reason for Visit * Reason Comments Cough Pt also has c/o siomara estion x 1 week. Encounter Details Date Type Department Care Team (Late st Contact Info) Description 05/01/2025 9:30 AM EST Office Visit [facility] at [address] [address] Shanique Guo PA-C [address] [place] [id number] Influenza A (Primary Dx) Social History Tobacco Use Types Packs/Day Years [...] on file documented as of this encounter Last Filed Vital Signs Vital Sign Reading Time Taken Comments Blood Pressure 127/77 05/01/2025 9:23 AM EST Pulse 84 05/01/2025 9:23 AM EST Temperature 36.6 C (97.9 F) 05/01/2025 9:23 AM EST Respiratory Rate 16 05/01/2025 9:23 AM EST Oxygen Saturation 96% 05/01/2025 9:23 AM EST Inhaled Oxygen Concentration - - Weight 93 kg (205 lb) 05/01/2025 9:23 AM EST Height - - Body Mass Index 31.17 10/24/2024 9:17 AM EDT documented in this encounter Patient Instructions * Patient Instructions* Shanique Guo PA-C - 05/01/2025 9:30 AM EST 1. Follow up with your PCP as needed or here as needed if your PCP is unavailable. 2. Symptoms generally worsen over initial 3-5 days and resolve within 7days. 3. Take tylenol 650mg every 6 hours as needed for fever and bodyaches. Alternate this with 600mg ofibuprofen as needed. 4. Drink plenty of fluids 5. Treat your symptoms. Try saline nasal saline spray or rinses. You can take sudafed as needed forcongestion. You can also use over the counter robitussin DM for the cough. You can use honey for the cough and sore throat. 6.Get rechecked if you develop new or worsening symptoms, or if your symptoms start to resolve and then you redevelop fever or chills, or a productive cough. 7. You can try over the counter Oscillococcinum. 8. Take the Tamiflu as prescribed. The Tamiflu can cause diarrhea, nausea and or vomiting. documented in this encounter Progress Notes * Shanique Guo PA-C - 05/01/2025 9:30 AM EST Images from the original note were not included. Subjective: Patient ID: Bhavesh Linares is a 65 y.o. male. Cough Associated symptoms include chills, myalgias and postnasal drip. Pertinent negatives include no earpain, fever, rhinorrhea, sore throat or shortness of breath. Review of Systems Constitutional: Positive for chills. Negative for fever. HENT: Positive for congestion and postnasal drip. Negative for ear pain, mouth sores, rhinorrhea and sore throat. Respiratory: Positive for cough. Negative for shortness of breath. Gastrointestinal: Negative for diarrhea, nausea and vomiting. Musculoskeletal: Positive for myalgias. Vitals: 05/01/25 0923 BP: 127/77 BP Location: Left arm Patient Position: Sitting Cuff Size: Large Pulse: 84 Resp: 16 Temp: 36.6 ??C (97.9 ??F) TempSrc: Oral SpO2: 96% Weight: 93 kg (205 lb) Objective: Physical Exam Vitals and nursing note reviewed. Constitutional: Appearance: Normal appearance. HENT: Head: Normocephalic and atraumatic. Right Ear: Tympanic membrane, ear canal and external ear normal. Left Ear: Tympanic membrane, ear canal and external ear normal. Nose: Congestion present. Right Sinus: No maxillary sinus tenderness or frontal sinus tenderness. Left Sinus: No maxillary sinus tenderness or frontal sinus tenderness. Mouth/Throat: Mouth: Mucous membranes are moist. Pharynx: Posterior oropharyngeal erythema present. Tonsils: No tonsillar exudate or tonsillar abscesses. Eyes: Extraocular Movements: Extraocular movements intact. Pupils: Pupils are equal, round, and reactive to light. Cardiovascular: Rate and Rhythm: Normal rate and regular rhythm. Heart sounds: No murmur heard. No friction rub. No gallop. Pulmonary: Effort: Pulmonary effort is normal. No respiratory distress. Breath sounds: No stridor. No wheezing, rhonchi or rales. Musculoskeletal: General: Normal range of motion. Cervical back: Normal range of motion. Skin: General: Skin is warm and dry. Neurological: General: No focal deficit present. Mental Status: He is alert and oriented to person, place, and time. Psychiatric: Mood and Affect: Mood normal. Behavior: Behavior normal. Thought Content: Thought content normal. Judgment: Judgment normal. Results for orders placed or performed in visit on 05/01/25 POCT SARS-CoV-2, Influenza A/B, RSV, PCR Result Value Ref Range SARS-Cov-2 PCR Negative Negative POC Influenza A Positive (*) Negative POC Influenza B Negative Negative RSV PCR Negative Negative Procedure: Procedures Assessment/Plan: Diagnosis Plan 1. Acute upper respiratory infection, unspecified Assessment and Plan: Pt presents for evaluation of viral symptoms. Vital signs and exam reassuring. A rapid strep PCR and viral panel were done. The strep, RSV and Covid were negative. Flu A is positive. No evidence of pneumonia at this time. Pt is tolerating po foods and fluids. Symptomatic treatment discussed. Red flags discussed. Pt will follow-up with pcp or here if symptoms persist. For markedly worsening symptoms the patient was advised to go to the ER. documented in this encounter Plan of Treatment Not on file documented as of this encounter Procedures Procedure Name Priority Date/Time Associated Diagnosis Comments POCT SARS-COV-2, INFLUENZA A/B, RSV, PCR Routine 05/01/2025 9:29 AM EST documented in this encounter Results * (ABNORMAL) POCT SARS-CoV-2, Influenza A/B, RSV, PCR (05/01/2025 9:29 AM EST) [facility] SARS-Cov-2 PCR Negative Negative 05/01/2025 10:10 AM EST [facility] POC Influenza A Positive(A) Negative 05/01/2025 10:10 AM EST [facility] POC Influenza B Negative Negative 05/01/2025 10:10 AM EST [facility] RSV PCR Negative Negative 05/01/2025 10:10 AM EST [facility] Swab (Anterior Nares) 05/01/2025 9:29 AM EST 05/01/2025 10:10 AM EST Shanique Guo PA-C LAB POCT DOCKED DEVICE UNSOL ICTED RESULTS Final Result [facility] [address] [id number], [facility] [phone] documented in this encounter Visit Diagnoses Diagnosis Influenza A- Primary Influenza with other respiratory manifestations documented in this encounter Additional Health Concerns Infection Onset Date Last Indicated Resolved Time Resp-Risk 05/01/2025 05/01/2025 05/01/2025 10:1 0 AM EST Influenza A 05/01/2025 05/01/2025 documented as of this encounter Care Teams Detective Automobile Section Relationship Specialty Start Date End Date Shyanne Casas MD [address] [id number] PCP - General Internal Medicine 04/26/21 documented as of this encounter Additional Source Comments The information contained in this document represents components of the legal health record. It is not the complete legal health record.[facility]
--- NOTE | ~2025-05-03 | XR_ITS ---
CLINICAL HISTORY: cough 2 view chest x-ray Comparison: None provided Findings: Mild airspace opacity at the medial right base. Normal size heart. No acute fracture. IMPRESSION: 1. Mild airspace opacity at the medial right base, may represent atelectasis or developing pneumonia. This document has been electronically signed by: Mignon Han MD on 05/03/2025 21:16:57
[2025-05-03 20:27] VITALS: BP 147/60; PULSE 88; RESP 20; TEMP 36.1; O2SAT 97; BMI 31.2
--- NOTE | 2025-05-03 20:59 | PC.NURSE ---
patient told javascript front end developer he was leaving and left the waiting room
--- OUTSIDE RECORDS SUMMARY | 2025-05-03 21:01 | XMS_ITS | Clinical Summary ---
Author Organization [facility] Address [address] [address] Phone Care Team Providers Care Clerical Proofreader Name Role Phone Shyanne Casas MD Primary Care Provider Allergies Active Allergy Reactions Criticality Noted Date Comments Penicillins 04/26/2021 Pt reports reaction during childhood. Unaware of reaction type. Medications VITAMIN B-12 500 MCG tablet Take 1 tablet by mouth every morning. 07/26/2024 Active sildenafiL (VIAGRA) 100 mg tablet 10/17/2024 Active cholecalciferol (VITAMIN D3) 2,000 unit tablet Take 2,000 Units by mouth. 11/03/2024 Active tamsulosin (FLOMAX) 0.4 mg Cap TAKE 1 EVERY DAY AT BEDTIME 04/02/2025 Active benzonatate (TESSALON) 100 MG capsule Take 1 capsule (100 mg total) by mouth 3 (three) times a day as needed for cough. 21 capsule 05/01/2025 Active fluticasone propionate (FLONASE) 50 mcg/actuation nasal spray 2 sprays by Nasal route daily. 16 g 12 05/01/2025 Active Active Problems Problem Noted Date Diagnosed Date Cellulitis of left upper extremity 10/24/2024 Encounters Date Type Department Care Team Description 05/01/2025 9:30 AM EST Office Visit [facility] at [address] [address] Shanique Guo PA-C Influenza A (Primary Dx) from Last 3 Months Immunizations Immunization Administration Dates Next Due Influenza Quadrivalent Preservative Free IM 01/04,02/02/2020,02/23/2019 Social History Tobacco Use Types Packs/Day Years [...] on file Sexual Orientation Not on file Last Filed Vital Signs Vital Sign Reading Time Taken Comments Blood Pressure 127/77 05/01/2025 9:23 AM EST Pulse 84 05/01/2025 9:23 AM EST Temperature 36.6 C (97.9 F) 05/01/2025 9:23 AM EST Respiratory Rate 16 05/01/2025 9:23 AM EST Oxygen Saturation 96% 05/01/2025 9:23 AM EST Inhaled Oxygen Concentration - - Weight 93 kg (205 lb) 05/01/2025 9:23 AM EST Height 172.7 cm (5' 8 ) 10/24/2024 9:17 AM EDT Body Mass Index 31.17 10/24/2024 9:17 AM EDT Plan of Treatment Health Maintenance Due Date Last Done Comments Adult Td,Tdap Booster 1962 DEPRESSION SCREENING 1974 HEPATITIS C SCREENING 01/16/1980 HIV ONE-TIME SCREENING (18-6 5 YEARS) 01/16/1980 PNEUMOCOCCAL VACCINES (50+ years) (1 of 2 - PCV) 1981 SCREENING FOR DIABETES 1997 COLOGUARD 2007 COLONOSCOPY 2007 COLORECTAL CANCER SCREENING 2007 FIT TEST 2007 FOBT 2007 SIGMOIDOSCOPY 2007 VIRTUAL COLONOSCOPY 2007 ZOSTER VACCINES (1 of 2) 01/16/2012 INFLUENZA VACCINE (#1) 2024 , 02/02/2020, 02/23/2019 COVID-19 VACCINE (3 - 2024-2 6 season) 2025 08/25/2020, 07/28/2020 SMOKING Hx and SMOKELESS TOBACCO SCREENING 05/01/2026 05/01/2025 LIPID PANEL 10/27/2029 10/27/2024, 10/24/2023 RSV VACCINE (1 - 1-dose 75+ series) 2037 HEPATITIS A VACCINES Aged Out No long er eligible based on patient's age to complete this topic HIB VACCINES Aged Out No longer eligi ble based on patient's age to complete this topic MENINGOCOCCAL VACCINES (ACWY) Aged Out No longer eligible based on patient's age to complete this topic MENINGOCOCCAL VACCINES (B) Aged Out N o longer eligible based on patient's age to complete this topic Medical Devices Not on file Procedures Procedure Name Priority Date/Time Associated Diagnosis Comments POCT SARS-COV-2, INFLUENZA A/B, RSV, PCR Routine 05/01/2025 9:29 AM EST from Last 3 Months Results * (ABNORMAL) POCT SARS-CoV-2, Influenza A/B, RSV, PCR (05/01/2025 9:29 AM EST) [facility] SARS-Cov-2 PCR Negative Negative 05/01/2025 10:10 AM EST [facility] Influenza A Positive(A) Negative 05/01/2025 10:10 AM EST [facility] Influenza B Negative Negative 05/01/2025 10:10 AM EST [facility] RSV PCR Negative Negative 05/01/2025 10:10 AM EST [facility] Swab (Anterior Nares) 05/01/2025 9:29 AM EST 05/01/2025 10:10 AM EST us Shanique Guo PA-C LAB POCT DOCKED DEVICE UNSOL ICTED RESULTS Final Result [facility] AT [address] [id number] [phone] from Last 3 Months Additional Health Concerns Infection Onset Date Last Indicated Influenza A 05/01/2025 05/01/2025 Insurance Care Teams Clerical Proofreader Relationship Specialty Start Date End Date Shyanne Casas MD [address] [address] PCP - General Internal Medicine 04/26/21 Additional Source Comments The information contained in this document represents components of the legal health record. It is not the complete legal health record.[facility]
--- OUTSIDE RECORDS SUMMARY | 2025-05-03 21:01 | XMS_ITS ---
Author Name [facility] Organization Unknown Care Team Organization Name Specialty Phone Email Start Date End Da te [facility] 03/13/2022 12/23/19 24
--- OUTSIDE RECORDS SUMMARY | 2025-05-03 21:01 | XMS_ITS | Clinical Summary ---
Author Organization 175 [facility] Address [address] [place] [address] Phone Care Team Providers Care Route Sales Manager Name Role Phone Shyanne Casas MD Primary Care Provider [phone] Allergies Active Allergy Reactions Criticality Noted Date Comments Penicillins 07/15/2018 Medications magnesium glycinate 100 mg tabletIndicatio ns:Bilateral occipital neuralgia Take 1 tablet by mouth at bedtime. 90 tablet 1 5 Active Additional Information Patient not taking.Reported on 11/03/2024 Vitamin B-12 500 mcg tablet TAKE 1 TABLET BY MOUTH EVERY DAY 90 tablet 3 5 Active sildenafiL (VIAGRA) 100 mg tablet Take 1 tablet (100 mg total) by mouth if needed for erectile dysfunction. 5 Active cholecalciferol (Vitamin D3) 50 mcg (2,000 unit) tabletIndicatio ns:Vitamin D deficiency Take 1 tablet (2,000 Units total) by mouth 1 (one) time each day. 90 tablet 2 5 Active Active Problems Problem Noted Date Diagnosed Date Congenital single kidney 11/03/2024 Vitamin B12 deficiency 10/31/2023 BPH with elevated PSA 10/26/2021 Dyslipidemia 10/26/2021 Encounters Date Type Department Care Team Description 03/08/2025 Lab Requisition [facility] - Main Lab [address] [facility] [place] [address] Randall Wilder MD Elevated prostate specific antigen (PSA); Benign prostatic hyperplasia with lower urinary tract symptoms from Last 3 Months Family History Medical History Relation Name Comments Prostate cancer Paternal Grandfather Relation Name Status Comments Father Alive Mother Alive Paternal Grandfather Social History Tobacco Use Types Packs/Day Years Used Date Smoking Tobacco: Never Smokeless Tobacco: Never Alcohol Use Standard Drinks/Week Comments Yes 2 (1 standard drink = 0.6 oz pur e alcohol) ~15 drinks per week Housing Instability Answer Date Recorde d Are you worried that in the next 2 months you may not have stable housing? No 06/15/2024 Food Access & Nutrition Answer Date Rec orded Do you have access to a vari ety of food including fruits and vegetables? Yes 06/15/2024 Access to Healthcare Answer Date Record ed Within the last 3 months, ho w many times did you visit the emergency department for your medical care? 0 06/15/2024 Health Literacy Answer Date Recorded How often do you need to hav e someone help you when you read instructions, pamphlets, or other written material from your doctor or pharmacy? Never 06/15/2024 Caregiver: How often do you need to have someone help you when you read instructions, pamphlets, or other written material from your doctor or pharmacy? Not on file 06/15/2024 Financial Risk Answer Date Recorded How hard is it for you to pa y for the very basics like food, housing, medical care, and air conditioning / heating? Not very hard 06/15/2024 Transportation Answer Date Recorded Has the lack of transportati on kept you from meetings, work, or from getting things needed for daily living? No Has the lack of transportati on kept you from medical appointments or from getting medications? No 06/15/2024 Social Isolation Answer Date Recorded How often do you feel lonely or isolated from th ose around you? Never 06/15/2024 Food Risk Answer Date Recorded Within the past 12 months we worried whether our food would run out before we got money to buy more. Never true 06/15/2024 Within the past 12 months th e food we bought just didn't last and we didn't have money to get more. Never true 06/15/2024 Dependent Care Answer Date Recorded Do you need help finding or paying for care for your loved ones. For example, child care teacher or elderly care for an older adult? No 06/15/2024 Education Answer Date Recorded Do you think completing more education or training, like finishing a GED, going to college, or learning a trade, would be helpful for you? Patient declined 06/15/2024 Employment and Income Answer Date Recor ded During the last four weeks, have you been actively looking for work? No 06/15/2024 Living Situation Answer Date Recorded What is your living situation? Unrecognized valu e 06/15/2024 Sex and Gender Information Value Date Recorded Sex Assigned at Not on file Legal Sex Male 12:02 AM EST Gender Identity Not on file Sexual Orientation Not on file Occupation Industry Job Start Date Job End Date [employer] Not on file Not on file Not on file Last Filed Vital Signs Vital Sign Reading Time Taken Comments Blood Pressure 126/86 11/03/2024 8:48 AM EDT Pulse 75 11/03/2024 8:48 AM EDT Temperature 36.4 C (97.5 F) 11/03/2024 8:48 AM EDT Respiratory Rate 18 11/03/2024 8:48 AM EDT Oxygen Saturation 98% 11/03/2024 8:48 AM EDT Inhaled Oxygen Concentration - - Weight 93.4 kg (206 lb) 11/03/2024 8:48 AM EDT Height 172.7 cm (5' 8 ) 11/03/2024 8:48 AM EDT Body Mass Index 31.32 11/03/2024 8:48 AM EDT Plan of Treatment Upcoming Encounters Date Type Department Care Team (Late st Contact Info) Description 11/04/2025 9:00 AM EDT Office Visit Internal Medicine - [place] 175 [facility] [address] [place] [address] Shyanne Casas MD 175 [facility] [address] [place] [address] Health Maintenance Due Date Last Done Comments DTaP,Tdap,and Td Vaccines (1 - Tdap) 1981 Pneumococcal Vaccine: 50+ Years (1 of 1 - PCV) 01/16/2012 Zoster Vaccines (1 of 2) 01/16/2012 HIV Screening 04/14/2022 Hepatitis C Screening 04/14/2022 COVID-19 Vaccine (5 - 5-26 season) 2025 02/11/2024, 03/09/2021, 08/25/2020, Additional history exists Influenza Vaccine (#1) 2025 , 01/30/2023, 01/17/2022, Additional history exists Social Influencers of Health Screening 06/15/2025 06/15/2024 Colorectal Cancer Screening: Colonoscopy 03/05/2027 03/05/2022 Cholesterol Screening (Lipid Panel) 10/27/2029 10/27/2024, 10/24/2023 RSV Immunization Adult Patients (1 - 1-dose 75+ series) 2037 Depression Screening Completed 06/15/2024 HIB Vaccines Aged Out No longer eligi ble based on patient's age to complete this topic HPV Vaccines Aged Out No longer eligi ble based on patient's age to complete this topic Hepatitis A Vaccines Aged Out No long er eligible based on patient's age to complete this topic Hepatitis B Vaccines Aged Out No long er eligible based on patient's age to complete this topic IPV Vaccines Aged Out No longer eligi ble based on patient's age to complete this topic MMR Vaccines Aged Out No longer eligi ble based on patient's age to complete this topic Meningococcal ACWY Vaccine Aged Out N o longer eligible based on patient's age to complete this topic Meningococcal B Vaccine Aged Out No l onger eligible based on patient's age to complete this topic RSV Immunization Patients Under 20 months Aged Out No longer eligible based on patient's age to complete this topic Varicella Vaccines Aged Out No longer eligible based on patient's age to complete this topic Procedures Procedure Name Priority Date/Time Associated Diagnosis Comments TISSUE EXAM Routine 03/02/2025 Elevated prostate specific antigen (PSA) Benign prostatic hyperplasia with lower urinary tract symptoms LIPID PANEL WITH REFLEX TO DIRECT LDL Routine 10/27/2024 7:42 AM EDT Dyslipidemia Vitamin B12 deficiency Vitamin D deficiency Adult general medical examination HM COLONOSCOPY Routine 03/05/2022 from Last 3 Months or Most Recently Relevant to Health Maintenance Results * Tissue Exam (03/02/2025) Final Diagnosis A. Prostate, Left [place]: - Benign prostatic tissue. B. Prostate, Left Lateral [place]: - Benign prostatic tissue. C. Prostate, Left Middle Middle: - Benign prostatic tissue. D. Prostate, Left Lateral Middle: - Benign prostatic tissue. E. Prostate, Left Middle Base: - Benign prostatic tissue. F. Prostate, Left Lateral Base: - Atypical small acinar proliferation (JAI). Note: PIN4 stain was performed to determine the nature of a proliferation of crowded small glands and shows that some of glands of interest stain negative for basal cell markers and negative for P504S, supporting the above diagnosis. PIN4 immunostain performed at [facility] lab, [address] [place] [address] [address], [place] [address], CLIA #[id number]. G. Prostate, Right [place]: - Benign prostatic tissue. H. Prostate, Right Lateral [place]: - Benign prostatic tissue. I. Prostate, Right Middle Middle: - Benign prostatic tissue. J. Prostate, Right Lateral Middle: - Benign prostatic tissue. K. Prostate, Right Middle Base: - Benign prostatic tissue. L. Prostate, Right Lateral Base: - Benign prostatic tissue. 5 12:55 PM [facility] at 1255 EST Clinical Information Elevated PSA PSA Level: 7.7 (12/29/24) N40.1 - benign prostatic hyperplasia (BPH) with lower urinary tract symptoms [id number] 12:55 PM [facility] Gross Description A. Prostate, Left [place]: Received, properly labeled, are two H and E stained slides and two unstained slides. B. Prostate, Left Lateral [place]: Received, properly labeled, are two H and E stained slides and two unstained slides. C. Prostate, Left Middle Middle: Received, properly labeled, are two H and E stained slides and two unstained slides. D. Prostate, Left Lateral Middle: Received, properly labeled, are two H and E stained slides and two unstained slides. E. Prostate, Left Middle Base: Received, properly labeled, are two H and E stained slides and two unstained slides. F. Prostate, Left Lateral Base: Received, properly labeled, are two H and E stained slides and two unstained slides. G. Prostate, Right [place]: Received, properly labeled, are two H and E stained slides and two unstained slides. H. Prostate, Right Lateral [place]: Received, properly labeled, are two H and E stained slides and two unstained slides. I. Prostate, Right Middle Middle: Received, properly labeled, are two H and E stained slides and two unstained slides. J. Prostate, Right Lateral Middle: Received, properly labeled, are two H and E stained slides and two unstained slides. K. Prostate, Right Middle Base: Received, properly labeled, are two H and E stained slides and two unstained slides. L. Prostate, Right Lateral Base: Received, properly labeled, are two H and E stained slides and two unstained slides. /al 12:55 PM [facility] Disclaimer NOTE: The immunohistochemical tests and in situ hybridization tests were developed and their performance characteristics were determined by [facility]. They have not been cleared or approved by the U.S. Food and Drug Administration. The FDA has determined that such clearance or approval is not necessary. These tests are used for clinical purposes. They should not be regarded as investigational or for research. This laboratory is certified under the Clinical Laboratory Improvement Amendments of 1988 (CLIA) as qualified to perform high complexity clinical laboratory testing. (controls appropriate) Unless otherwise specified, all tissue is 10% NB formalin fixed and paraffin embedded. Technical pathology services provided by [facility] at [address] [place] [address] [address], [place] [address] (CLIA #[id number]/Dianna Mart MD, Property And Supply Officer) 12:55 PM [facility] Tissue Prostate / Unknown 03/02/20252024 9:40 AM EST Tissue specimen (specimen) Prostate / Unknown 03/02/2025 03/08/2025 9: 40 AM EST Tissue specimen (specimen) Prostate / Unknown 03/02/2025 03/08/2025 9: 40 AM EST Tissue specimen (specimen) Prostate / Unknown 03/02/2025 03/08/2025 9: 40 AM EST Tissue specimen (specimen) Prostate / Unknown 03/02/2025 03/08/2025 9: 40 AM EST Tissue specimen (specimen) Prostate / Unknown 03/02/2025 03/08/2025 9: 40 AM EST Tissue specimen (specimen) Prostate / Unknown 03/02/2025 03/08/2025 9: 40 AM EST Tissue specimen (specimen) Prostate / Unknown 03/02/2025 03/08/2025 9: 40 AM EST Tissue specimen (specimen) Prostate / Unknown 03/02/2025 03/08/2025 9: 40 AM EST Tissue specimen (specimen) Prostate / Unknown 03/02/2025 03/08/2025 9: 40 AM EST Tissue specimen (specimen) Prostate / Unknown 03/02/2025 03/08/2025 9: 40 AM EST Tissue specimen (specimen) Prostate / Unknown 03/02/2025 03/08/2025 9: 40 AM EST us Randall Wilder MD LAB PATHOLOGY ORDERABLES Final Result [facility] [address] [place] [address], [place] [phone] * (ABNORMAL) Lipid panel with reflex to direct LDL (10/27/2024 7:42 AM EDT) Cholesterol 243(H) 0 - 200 mg/dL LAB CHEMISTRY METHOD 10/27/2024 11:37 AM EDT [facility] Triglycerides 98 0 - 150 mg/dL LAB CHEMISTRY METHOD 10/27/2024 11:37 AM EDT [facility] HDL 62 >=40 mg/dL LAB CHEMISTRY METHOD 10/27/2024 11:37 AM EDT [facility] LDL Calculated 161(H) 0 - 100 mg/dL LAB CHEMISTRY METHOD 10/27/2024 11:37 AM T [facility] VLDL Cholesterol Gab 19.6 mg/dL LAB CHEMISTRY METHOD 10/27/2024 11:37 AM EDT [facility] Non HDL Chol. (LDL+VLDL) 181(H) <145 mg/dL LAB CHEMISTRY METHOD 10/27/2024 11:37 AM EDT [facility] Chol/HDL Ratio 3.9 0.0 - 4.4 LAB CHEMISTRY METHOD 10/27/2024 11:37 AM EDT [facility] Blood Venous blood specimen / Unknown Venipuncture / Unknown 10/27/2024 7:42 AM EDT 10/27/2024 7:42 AM EDT Shyanne Casas MD LAB BLOOD ORDERABLES Final Res ult [facility] [address] [place] [address], * Colonoscopy (03/05/2022) Colonoscopy negative, abstracted Anatomical Region Laterality Modality Other Historical Provider HEALTH MAINTENANCE Final Result from Last 3 Months or Most Recently Relevant to Health Maintenance Insurance [employer] Care Teams Route Sales Manager Relationship Specialty Start Date End Date Shyanne Casas MD [address] [phone] PCP - General Internal Medicine 07/14/18
--- OUTSIDE RECORDS SUMMARY | 2025-05-03 21:01 | XMS_ITS | Encounter Summary ---
Author Organization [facility] [place] [address] Care Team Providers Care Collection Systems Foreman Name Role Phone Shyanne Casas MD Primary Care Provider [phone] Encounter Details Date Type Department Care Team (Late st Contact Info) Description 03/08/2025 Lab Requisition [facility] - Main Lab 299 [facility] [place] [address] Randall Wilder MD [address] [place] [address] Elevated prostate specific antigen (PSA); Benign prostatic hyperplasia with lower urinary tract symptoms Social History Tobacco Use Types Packs/Day Years [...] Record ed Within the last 3 months, nelson guzmán many times did you visit the emergency [...] do you feel lonely or isolated from ose around you? Never 06/15/2024 Food Risk [...] care for your loved ones. For example, early childhood teacher assistant or elderly care for an older adult? [...] Industry Job Start Date Job End Date [employer] Not on file Not on file Not on file documented as of this encounter Plan of Treatment Upcoming Encounters Date Type Department Care Team (Late st Contact Info) Description 11/04/2025 9:00 AM EDT Office Visit Internal Medicine - [place] 175 [facility] [address] [place] [address] Shyanne Casas MD 175 [facility] [address] [place] [address] documented as of this encounter Procedures Procedure Name Priority Date/Time Associated Diagnosis Comments TISSUE EXAM Routine 03/02/2025 Elevated prostate specific antigen (PSA) Benign prostatic hyperplasia with lower urinary tract symptoms documented in this encounter Results * Tissue Exam (03/02/2025) Final Diagnosis A. Prostate, Left [place]: - Benign prostatic tissue. B. Prostate, Left Lateral [place]: - Benign prostatic tissue. C. Prostate, Left [...] the above diagnosis. PIN4 immunostain performed at [facility] lab, [address], [place] [address], CLIA #[id number]. G. Prostate, Right [place]: - Benign prostatic tissue. H. Prostate, Right Lateral [place]: - Benign prostatic tissue. I. Prostate, Right Middle Middle: - Benign prostatic tissue. J. Prostate, Right Lateral Middle: - Benign prostatic tissue. K. Prostate, Right Middle Base: - Benign prostatic tissue. L. Prostate, Right Lateral Base: - Benign prostatic tissue. 5 12:55 PM EST [facility] at 1255 EST Clinical Information Elevated PSA PSA Level: 7.7 (12/29/24) N40.1 - benign prostatic hyperplasia (BPH) with lower urinary tract symptoms [id number] 12:55 PM EST [facility] Gross Description A. Prostate, Left [place]: Received, properly labeled, are two H and E stained slides and two unstained slides. B. Prostate, Left Lateral [place]: Received, properly labeled, are two H and [...] two unstained slides. G. Prostate, Right [place]: Received, properly labeled, are two H and E stained slides and two unstained slides. H. Prostate, Right Lateral [place]: Received, properly labeled, are two H and [...] stained slides and two unstained slides. /al 5 12:55 PM [facility] Disclaimer NOTE: The immunohistochemical tests and in situ hybridization tests were developed and their performance characteristics were determined by [facility]. They have not [...] paraffin embedded. Technical pathology services provided by [facility] at [address] [place] [address] [address], [place] [address] (CLIA #[id number]/Dianna Mart MD, [place]) 5 12:55 PM [facility] Tissue Prostate / Unknown 03/02/20252024 9:40 [...] Wilder MD LAB PATHOLOGY ORDERABLES Final Result [facility] [address] [place] [address], documented in this encounter Visit Diagnoses Diagnosis Elevated prostate specific antigen (PSA) Benign prostatic hyperplasia with lower urinary tract symptoms documented in this encounter Additional Health Concerns Assessment Noted Time PHQ-9 Depression Total Score: 0 06/15/19 25 12:07 PM EST documented as of this encounter Care Teams Collection Systems Foreman Relationship Specialty Start Date End Date Shyanne Casas MD [address] [address] PCP - General Internal Medicine 07/14/18 documented as of this encounter
== END 2025-05-03 21:00 | disposition left against medical advice (07) ==
PROVIDERS: Emergency Provider Emergency Medicine; PCP Internal Medicine
DX: R05.9 Cough, unspecified (principal)
CPT/HCPCS: 71046; 99281